=== PATIENT | female | born 1955 | race Caucasian/White ===

== ENCOUNTER 2019-10-26 15:56 | Emergency (ER) | payer MEDICARE, OTHER ==
--- NOTE | 2019-10-26 16:16 | Emergency Department Record ---
History of Present Illness - General Chief Complaint: Chest Pain Stated Complaint: CHEST PAIN Time Seen by Provider: 10/26/19 16:07 Source: Patient Mode of Arrival: Ambulatory Limitations: No limitations - History of Present Illness Initial Comments: The patient is here due to a 2 hour history of first epigastric abdominal discomfort like heartburn then chest pressure. It did start out like indigestion and then did travel up into the chest. There is no radiation of the discomfort and she denies any sweating or nausea but is having mild ELIO. The patient has no cardiac hx and has never had discomfort like this in the past. She does have cardiac risk factors of DMII, and a strong family hx of CAD. MD Complaint: Other Onset/Timin -: Hour(s) Onset: During rest Pain Location: Substernal, Epigastric Pain Radiation: None Severity scale (1-10): 6 Quality: Other Consistency: Constant Improves With: Nothing Worsens With: Nothing Treatments Prior to Arrival: None - Related Data Previous Rx's Medication Instructions Recorded Sucralfate [Carafate] 1 gm PO QID #28 tablet 10/26/19 Allergies Allergy/AdvReac Type Severity Reaction Status Date / Time ciprofloxacin [From CIPRO] Allergy Unknown HIVES Unverified 10/26/19 16:03 ciprofloxacin HCl Allergy Unknown HIVES Unverified 10/26/19 16:03 [From CIPRO] Penicillins [PENICILLINS] Allergy Unknown HIVES Unverified 10/26/19 16:03 tetracycline [TETRACYCLINE] Allergy Unknown HIVES Unverified 10/26/19 16:03 levofloxacin [From Levaquin] Allergy HIVES Unverified 10/26/19 16:03 Travel Screening - Travel/Exposure Within Last 30 Days Have you traveled within the last 30 days?: No Review of Systems Constitutional: Denies: Chills, Fever Eyes: Denies: Eye discharge ENT: Denies: Congestion Respiratory: Denies: Cough, Dyspnea Cardiovascular: Denies: Arrhythmia Endocrine: Denies: Fatigue Gastrointestinal: Denies: Nausea Genitourinary: Denies: Dysuria Musculoskeletal: Denies: Arthralgia Skin: Denies: Bruising Past Medical History - SOCIAL HISTORY Smoking Status: Never smoker Alcohol Use: None Drug Use: None - RESPIRATORY Hx Respiratory Disorders: Yes Hx Asthma: Yes - CARDIOVASCULAR Hx Cardio Disorders: No - NEURO Hx Neuro Disorders: Yes Hx Headaches: Yes - GI Hx GI Disorders: No - Hx Genitourinary Disorders: No - ENDOCRINE Hx Endocrine Disorders: Yes Hx Diabetes: Yes (type 2) Hx Thyroid Disease: No - MUSCULOSKELETAL Hx Musculoskeletal Disorders: Yes Hx Arthritis: Yes (psoriatic) - PSYCH Hx Psych Problems: No - HEMATOLOGY/ONCOLOGY Hx Hematology/Oncology Disorders: Yes Hx Cancer: Yes Hx Chemotherapy: No Hx Radiation Therapy: No Family Medical History Any Significant Family History?: Yes Hx Heart Disease: Mother, Brother/Sister Physical Exam - General General Appearance: Alert, Oriented x3, Cooperative, No acute distress - Head Head exam: Atraumatic, Normocephalic, Normal inspection - Eye Eye exam: Normal appearance, PERRL - ENT Throat exam: Normal inspection. negative: Tonsillar erythema, Tonsillar exudate - Neck Neck exam: Normal inspection, Full ROM. negative: Tenderness - Respiratory Respiratory exam: Normal lung sounds bilaterally. negative: Respiratory distress - Cardiovascular Cardiovascular Exam: Regular rate, Normal rhythm, Normal heart sounds. negative: Diastolic murmur - GI/Abdominal GI/Abdominal exam: Soft, Normal bowel sounds. negative: Tenderness - Extremities Extremities exam: Normal inspection, Full ROM, Normal capillary refill. negative: Tenderness - Back Back exam: Reports: Normal inspection. Denies: Vertebral tenderness - Neurological Neurological exam: Alert, Normal gait, Oriented X3. negative: Abnormal gait, Altered, Motor sensory deficit - Psychiatric Psychiatric exam: negative: Anxious Course Vital Signs 10/26/19 15:57 Temperature 97.5 F L Pulse Rate 92 H Respiratory 20 Rate Blood Pressure 189/97 Pulse Ox 97 - Reevaluation(s) Reevaluation #1: The patient is doing much better at this time. She states the GI medicines have completely taken the pain away and she denies any SOB or ELIO. I did explain to her that her lab tests are all WNL's and her EKG's do not demonstrate any injury pattern. Due to her multiple cardiac risk factors I did recommend a short stay hospital admission but the patient is refusing. I then did explain the risks of leaving which are that the patient could go home and have an FL, stroke, become disabled and . The patient fully understands and accepts the risks. She presently has proper decision making capacity and will see her doctor for recheck and was directed to return to the ER for any worsening symptoms. 10/26/19 17:47 Reevaluation #2: 2nd EKG: NSR at 76, Neg ST-T changes. Normal EKG. 10/26/19 17:50 Medical Decision Making - Data Complexity MDM Data: Labs Ordered and/or Reviewed, X-Ray Ordered and/or Reviewed, EKG Ordered and/or Reviewed - Lab Data Result diagrams: 10/26/19 16:05 10/26/19 16:05 - EKG Data -: EKG Interpreted by Me EKG: No Acute Changes (borderline prolonged QT interval. Neg ST changes.) - Radiology Data Radiology results: Report reviewed (CXR: Neg for acute changes.) Disposition Disposition: Discharge Clinical Impression: Gastritis Qualifiers: Gastritis type: unspecified gastritis Chronicity: acute Gastritis bleeding: presence of bleeding unspecified Qualified Code(s): K29.00 - Acute gastritis without bleeding Disposition: Against Medical Advice Condition: (2) Stable Instructions: Gastroesophageal Reflux Disease (ED) Additional Instructions: Please continue your regular medicines and add the Carafate. Please see your family doctor for recheck next week and have a cardiac evaluation ordered. Please also see Dr. Cabral in the Specialty clinic when possible. Please return to the ER for any worsening symptoms. Prescriptions: Sucralfate [Carafate] 1 gm PO QID #28 tablet Referrals: [facility] Specialty Clinics [Provider Group] Forms: Patient Portal Access Time of Disposition: 17:52 Quality - Quality Measures Quality Measures: N/A - Blood Pressure Screening View Details: Yes Does Patient Have Any of the Following: No Blood Pressure Classification: Hypertensive Reading Systolic Measurement: 189 Diastolic Measurement: 97 Screening for High Blood Pressure: < First Hypertensive BP, F/U Documented > [[id number]] First Hypertensive Follow-up Interventions: Referral to alternative/primary care provider.
[2019-10-26] MEDS: ASPIRIN 325 MG TABLET PO ONE (16:25)
[2019-10-26] MEDS: MAGNESIUM HYDROXIDE/AL HYDROX 30 ML, LIDOCAINE VISC 2% 15ML 15 ML PO ONE ×2 (16:25)
[2019-10-26 16:33] LABS: ABSOLUTE NEUTROPHIL COUNT 4.07; BASO % 0.1 % (0-6); EOS % 2.3 % (0-6); GRAN % 53.1 % (47-80); HEMATOCRIT 41.4 % (35.0-47.0); HEMOGLOBIN 13.3 gm/dl (11.6-16.0); LYMPH % 37.7 % (16-45); MEAN CELL VOLUME 91.4 fl (81-97); MEAN CORPUSCULAR HEMOGLOBIN 29.4 pg (27-33); MEAN CORPUSCULAR HGB CONC 32.1 g/dl (32-36); MEAN PLATELET VOLUME 9.4 fl (7.4-10.4); MONO % 6.8 % (0-9); PLATELET COUNT 290 K/uL (130-400); RED BLOOD COUNT 4.53 M/uL (3.80-5.40); RED CELL DISTRIBUTION WIDTH 13.4 % (11.5-14.5); WHITE BLOOD COUNT W/O DIFF 7.7 K/uL (4.2-12.2)
[2019-10-26 16:45] LABS: BLOOD UREA NITROGEN 17 mg/dL (8-23); CREATININE 0.8 mg/dL (0.5-0.9); EST GLOMERULAR FILTRATION RATE > 60 mL/min; LIPASE 31 U/L (13-60)
[2019-10-26 16:46] LABS: TOTAL PROTEIN 7.6 g/dL (6.6-8.7)
[2019-10-26 16:48] LABS: GLUCOSE,RANDOM 144 mg/dL (74-109); PROTHROMBIN TIME (PATIENT) 9.9 SECONDS (9.5-12.1)
[2019-10-26 16:50] LABS: ALB/GLOB RATIO 1.6 (1.1-1.8); ALBUMIN 4.7 g/dL (4.0-5.0); ALT/SGPT 67 U/L (<33); AST/SGOT 42 U/L (10.0-35.0); BILIRUBIN,DIRECT < 0.2 mg/dL (0-0.3)
[2019-10-26 16:51] LABS: ALKALINE PHOSPHATASE 139 U/L (35-104)
[2019-10-26] MEDS: SUCRALFATE 1 G/10 ML UD PO ONE (17:19)
--- NOTE | 2019-10-26 17:41 | RADIOLOGY REPORT ---
EXAMINATION: Frontal and Lateral Chest EXAM DATE: 10/26/2019 5:21 PM INDICATION: Chest pressure today FINDINGS: Frontal and lateral views show clear lungs, normal heart size, and normal hilar and mediast inal structures. Age indeterminant right rib fractures are noted. Dictated by: Umberto Riley MD on 10/26/2019 5:37 PM. .
== END 2019-10-26 18:15 | disposition left against medical advice (07) ==
LOC: ER 15:56
DX: K29.00 Acute gastritis without bleeding (principal); R07.2 Precordial pain; R10.13 Epigastric pain; R06.00 Dyspnea, unspecified; E11.9 Type 2 diabetes mellitus without complications; Z79.4 Long term (current) use of insulin; Z79.84 Long term (current) use of oral hypoglycemic drugs; Z53.20 Procedure and treatment not carried out because of patient's decision for unspecified reasons
CPT/HCPCS: 71046; 80053; 82248; 83690; 84484; 85025; 85610; 85730; 93005; 93010; 99285